=== PATIENT | male | born 1960 | race Caucasian/White ===

== ENCOUNTER 2018-03-31 05:46 | Emergency (ER) | payer OTHER, SELFPAY ==
[2018-03-31 05:54] VITALS: BP 154/94; PULSE 84; RESP 18; TEMP 36.7; O2SAT 97
--- NOTE | 2018-03-31 06:09 | W.ED.GENAD ---
Discharge Plan Disposition Patient Disposition: HOME Condition: Good Discharge Details Chief Complaint: Orthopedic Clinical Impression: Contusion of right wrist Primary Care Provider: Kathy Avila ED Provider: James Rehman Home Meds and New Rx's Prescriptions: No Action No Known Home Meds RF: 0 Discharge Instructions Instructions: Contusion in Adults (ED) Medical Decision Making PAtient states at work yesterday got his right wrist caught between two carts, denies falling or other injuries. HAs full rom of the wirst though with pain along distal ulna, intact sensation and 2+ pulses. Suspect contusion but will obtain xray. HAs no redness/warmth/swelling to suggest septic joint xray negative, suspect contusion, will place in splint and advised f/u with pcp if pain continues in one week Differential Diagnosis sprain, contusion, fracture Imaging Data Radiologic Study: Attestation: I personally reviewed and interpreted this imaging study as follows: Imaging: X-Ray Lab Data no acute findings HPI General Mode of arrival: ambulatory. Date/Time Provider Initiated Documentation: 03/31/18 06:07. Limitations to Documentation: no limitations. Information obtained by: patient. History of Present Illness 57 year old M presents to the emergency department with the chief complaint of right wrist pain, described as moderate, with intensity rated at 4. Quality is described as stabbing, and is localized to the right and upper extremity. Patient extremity. Patient started experiencing this day(s) (1) and it has been constant. Rest improves symptom(s), Movement worsens symptoms . Patient notes no other symptoms.. Patient did receive the following treatments prior to arrival, none Related Data Home Medications Medication Instructions Recorded Confirmed Unknown [No Known Home Meds] 04/20/17 03/31/18 Allergies Allergy/AdvReac Type Severity Reaction Status Date / Time hayfever in summer Allergy Mild congestion, Uncoded 03/31/18 06:02 sneezing General Stated Complaint: Orthopedic TYSHAWN: 3 Review of Systems Review of Systems All systems reviewed & are unremarkable except as noted in HPI and below Constitutional Denies chills, Denies fever(s) and Denies weakness ENT Denies change in voice Cardiovascular Denies chest pain and Denies dyspnea Respiratory Denies dyspnea Gastrointestinal Denies abdominal pain, Denies nausea and Denies vomiting Neurologic Denies weakness Psychiatric Denies depression [facility] Colonoscopy - IV Sedation (10/15/16) Social History Smoking/Tobacco Use Status: Never Surgical History Colonoscopy - IV Sedation (10/15/16) Social History Smoking/Tobacco Use Status: Never Exam Const General: no acute distress Orientation: alert HENMT Head: normal to inspection Ears: external ears normal General nose exam: external nose normal Mouth: moist mucous membranes Eyes General: appearance normal, both eyes and all related structures Neck Neck: normal visual inspection Resp Effort & Inspection: normal respiratory effort and able to speak in complete sentences Cardio Rate: regular rate Skin General skin exam: no rashes or lesions noted Neuro General: alert and oriented x3 Extrem General: normal to inspection Psych Mental Status: mental status grossly normal Course Vital Signs Temperature 36.7 C 03/31/18 05:54 Pulse 84 03/31/18 05:54 Respiratory Rate 18 03/31/18 05:54 Blood Pressure 154/94 H 03/31/18 05:54 Pulse Oximetry 97 03/31/18 05:54 Temperature 36.7 C 03/31/18 05:54 Temperature Source Temporal Artery Scan 03/31/18 05:54 Pulse 84 03/31/18 05:54 Respiratory Rate 18 03/31/18 05:54 Respiratory Effort Non-Labored 03/31/18 05:54 Blood Pressure 154/94 H 03/31/18 05:54 Blood Pressure Position Sitting 03/31/18 05:54 Pulse Oximetry 97 03/31/18 05:54 Oxygen Delivery Method Room Air 03/31/18 05:54 Oxygen Flow Rate 0 03/31/18 05:54 Pain Level 5 03/31/18 05:54
[2018-03-31] MEDS: Acetaminophen 500 MG TAB 1000 MG PO (06:15)
--- NOTE | 2018-03-31 06:20 | DI.RAD_ITS ---
SYMPTOMS/DIAGNOSIS: PAIN S/P TRAUMA RIGHT WRIST: Three views were obtained. Carpal alignment appears within normal limits. No fractures seen.
--- NOTE | 2018-03-31 06:32 | DI.VRAD_ITS ---
EXAM: XR Right Wrist Complete, 3 or more Views EXAM DATE/TIME: 03/31/2018 6:09 AM CLINICAL HISTORY: 57 years old, male; Injury or trauma; Injury history: Caught between two carts; Work related; Initial encounter; Swelling (edema); Wrist; Right; Injury date: 03/30/18; Injury details: PT wrist caught between two carts at work. ; Patient HX: Swelling of the wrist, distal ulna TECHNIQUE: XR Right wrist 3 or more views. COMPARISON: No relevant prior studies available. FINDINGS: Bones/joints: Unremarkable for age. No evidence of acute fracture. Soft tissues: Unremarkable. IMPRESSION: No acute findings. Dictated and Authenticated by: Chad Ndiaye MD. Ordering:NICOLASA MOSER MD
[2018-03-31 06:46] VITALS: BP 154/94; PULSE 84; RESP 18; TEMP 36.7; O2SAT 97
== END 2018-03-31 07:00 | disposition home or self-care (01) ==
LOC: ER 06:52
PROVIDERS: Emergency Provider Emergency Medicine; PCP Family Medicine
DX: S60.211A Contusion of right wrist, initial encounter (principal); W23.0XXA Caught, crushed, jammed, or pinched between moving objects, initial encounter; Y99.0 Civilian activity done for income or pay; I10 Essential (primary) hypertension
CPT/HCPCS: 29125; 99283; 73110; L3908

== ENCOUNTER 2019-12-05 08:39 | Outpatient (REF) | payer OTHER, SELFPAY ==
[2019-12-05 20:10] LABS: HCT 45.9 % (40.0-50.0); HGB 15.8 g/dL (13.5-17.5); MCH 31.3 pg (27.0-33.0); MCHC 34.4 % (32.0-36.0); MCV 91.1 fL (80-95); MPV 11.6 fL (8.0-11.0); Platelet Count 268 10^3/uL (130-400); RBC 5.04 10^6/uL (4.36-5.78); RDW 12.7 % (11.8-14.1); RDW-SD 41.6 fL; WBC 10.34 10^3/uL (4.4-10.8)
[2019-12-05 20:49] LABS: BUN 9 mg/dL (7-18); CREATININE 1.01 mg/dL (0.70-1.30); Calculated LDL 121 mg/dL (<100); Chloride 105 mmol/L (98-107); Cholesterol 183 mg/dL (<200); Glucose 108 mg/dL (74-106); HDL Cholesterol 44 mg/dL (40-60); Potassium 4.4 mmol/L (3.5-5.1); Sodium 141 mmol/L (136-145); Triglyceride 92 mg/dL (<150)
== END 2019-12-05 08:59 ==
LOC: NCHCN 08:39
PROVIDERS: PCP Family Medicine; Visit Provider Family Medicine
DX: Z00.00 Encounter for general adult medical examination without abnormal findings (principal); R73.03 Prediabetes
CPT/HCPCS: 80048; 80061; 85027; 83036

== ENCOUNTER 2020-08-19 11:11 | Emergency (ER) | payer OTHER, SELFPAY ==
[2020-08-19 11:26] VITALS: BP 139/75; PULSE 90; RESP 14; TEMP 36.4; O2SAT 97
--- NOTE | 2020-08-19 11:30 | DI.RAD_ITS ---
EXAM: XR FINGER RT LITTLE CLINICAL HISTORY: laceration tuft, crush injury yesterday TECHNIQUE: COMPARISON: No exams were available for comparison FINDINGS: Three views were obtained. There is no evidence of fracture or dislocation. IMPRESSION: RADIATION DOSE DELIVERED: Total DLP
--- NOTE | 2020-08-19 12:32 | ED.GENADUL_ITS ---
Discharge Plan Disposition Patient Disposition: HOME Condition: Good Discharge Details Clinical Impression: Laceration of finger Primary Care Provider: Kathy Avila ED Provider: Ramona Gonzalez Home Meds and New Rx's Prescriptions: No Action No Known Home Meds RF: 0 Discharge Instructions Instructions: Finger Laceration (ED) Additional Instructions: Keep wound clean and dry Change dressing every 48 hours Keep the bulky dressing on it so that it does not open Return with spreading redness, fever, worsening pain There is no evidence of fracture To develop signs and symptoms of infection listed above, please return to the emergency room Typically we are unable to suture lacerations that are greater than 10 hours after initial injury You have received a tetanus shot Discharge Data Discharge Date/Time-TO BE ENTERED AT DEPARTURE: 08/19/20 12:57 Medical Decision Making Patient appears well, I do not feel comfortable suturing this wound as it has been over 24 hours since injury A bulky dressing was applied X-ray does not show evidence of fracture per radiology interpretation in my revi ew Return precautions were discussed and patient expressed understanding Bleeding is controlled No evidence of secondary infection Differential Diagnosis Differential Diagnosis: Open fracture, fracture, cellulitis, laceration HPI This 60-year-old gentleman who is otherwise healthy presents with injury to right pinky yesterday at 9:00 in the morning. This occurred at work. He states it was crushed between a piece of wood. He is unsure regarding his tetanus. He states that he presents today secondary to intermittent persistent bleeding. He reports some mild discomfort to the affected area. He denies any sensation change. General Date/Time Provider Initiated Documentation: 08/19/20 11:36 . Related Data Home Medications Medication Instructions Recorded Confirmed Unknown [No Known Home Meds] 04/20/17 08/19/20 Allergies Allergy/AdvReac Type Severity Reaction Status Date / Time hayfever in summer Allergy Mild congestion, Uncoded 08/19/20 11:32 sneezing General Stated Complaint: Laceration TYSHAWN: 4 Review of Systems Narrative: Review of systems obtained x7 aside from indicated in HPI [facility] Surgical History (Updated 12/01/16 @ 10:55 by Sinai Gupta) Colonoscopy - IV Sedation (10/15/16) Social History Smoking/Tobacco Use Status: Never Smoking risk assessment performed?: Yes Alcohol Intake: current Alcohol Intake frequency: holidays/special occasions only Drug use: Never Substance use type: does not use Do you feel safe at home: Yes Do you feel safe in your relationship?: Yes Exam Extrem Other: Right fifth digit on hand with laceration noted, mild oozing, mild tenderness, brisk cap refill, sensation intact, no tenderness to metacarpal phalangeal joint, no evidence of secondary cellulitis Course Vital Signs Vital signs: Vital Signs Temperature 36.4 C L 08/19/20 11:26 Pulse 90 08/19/20 11:26 Respiratory Rate 14 08/19/20 11:26 Blood Pressure 139/75 08/19/20 11:26 Pulse Oximetry 97 08/19/20 11:26 Temperature 36.4 C L 08/19/20 11:26 Temperature Source Skin 08/19/20 11:26 Pulse 90 08/19/20 11:26 Respiratory Rate 14 08/19/20 11:26 Respiratory Effort 08/19/20 11:33 Blood Pressure 139/75 08/19/20 11:26 Blood Pressure Position Sitting 08/19/20 11:26 Pulse Oximetry 97 08/19/20 11:26 Oxygen Delivery Method Room Air 08/19/20 11:26 Oxygen Flow Rate 0 08/19/20 11:26 Pain Level 1 08/19/20 11:33
== END 2020-08-19 12:57 | disposition home or self-care (01) ==
PROVIDERS: Emergency Provider Physician Assistant; PCP Family Medicine
DX: S67.196A Crushing injury of right little finger, initial encounter (principal); S61.216A Laceration without foreign body of right little finger without damage to nail, initial encounter; W23.1XXA Caught, crushed, jammed, or pinched between stationary objects, initial encounter; Y99.0 Civilian activity done for income or pay
CPT/HCPCS: 90471; 99284; 73140; 99283

== ENCOUNTER 2020-11-21 09:32 | Outpatient (REF) | payer OTHER, SELFPAY ==
[2020-11-21 14:57] LABS: Hemoglobin A1C 5.9 % (<5.7)
== END 2020-11-21 09:33 | disposition home or self-care (01) ==
LOC: NCHCN 09:32
PROVIDERS: PCP Family Medicine; Visit Provider Family Medicine
DX: R73.03 Prediabetes (principal)
CPT/HCPCS: 83036

== ENCOUNTER 2021-12-02 07:57 | Emergency (ER) | payer OTHER, SELFPAY ==
[2021-12-02 08:01] VITALS: BP 141/91; PULSE 94; RESP 20; TEMP 36.4; O2SAT 99
--- NOTE | 2021-12-02 08:08 | ED.GENADUL_ITS ---
Discharge Plan Disposition Patient Disposition: HOME Condition: Improving Discharge Details Chief Complaint: Laceration Clinical Impression: Laceration of finger Primary Care Provider: Kathy Avila ED Provider: Aidan Foster Home Meds and New Rx's Prescriptions: No Action No Known Home Meds Discharge Instructions Instructions: Finger Laceration (ED) Medical Decision Making 61-year-old gentleman, [id number], presents for a left fingertip laceration versus a sawblade. Patient reports that tetanus status is up-to-date. Recommended x-ray to rule out bony involvement patient believes the laceration is rather superficial and there is no bony involvement, declines x- ray. Given the type of laceration there is nothing to approximate. Patient was like a digital block. Digital block performed using a total of 5 cc half-and-h vikas mixture of 1% lidocaine and 0.5% bupivacaine. Patient tolerated well. Laceration was then thoroughly cleaned and appropriately dressed. Patient tolerated well. Standard discharge and return precautions were provided. Patient understands, is agreeable to this plan, and has no additional questions or concerns upon discharge. This documentation was generated using Stormpulseation system, please disregard any oddities of phrase or misspellings. Medical Records Medical records reviewed: Yes I reviewed the patient's medical records. HPI General Mode of arrival: ambulatory . Date/Time Provider Initiated Documentation: 12/02/21 08:08 . Limitations to Documentation: no limitations . Information obtained by: patient . History of Present Illness 61 year old M presents to the emergency department with the chief complaint of L index finger lac, described as moderate, with intensity rated at 6. Quality is described as aching, and is localized to the left and upper extremity. Patient reports no radiation. Patient started experiencing this minute(s) (30) and it has been constant. Immobilization improves symptom(s), Movement worsens symptoms . Patient notes no other symptoms.. Patient did receive the following treatments prior to arrival, none Related Data Home Medications Medication Instructions Recorded Confirmed Unknown [No Known Home Meds] 04/20/17 12/02/21 Allergies Allergy/AdvReac Type Severity Reaction Status Date / Time hayfever in summer Allergy Mild congestion, Uncoded 12/02/21 08:04 sneezing General Stated Complaint: Laceration TYSHAWN: 4 Review of Systems Constitutional Constitutional: Denies weakness Musculoskeletal Musculoskeletal: Denies arthralgias, Denies numbness, Denies stiffness and Denies tingling Integumentary/Breasts Skin/Breast: Denies erythema Neurologic Neurologic: Denies numbness, Denies tingling and Denies weakness PFSH All Active Problems (Updated 12/02/21 @ 08:26 by GASPER Castrejon) Laceration of finger (Acute) Surgical History Colonoscopy - IV Sedation (10/15/16) Social History Smoking/Tobacco Use Status: Never Smoking risk assessment performed?: Yes Alcohol Intake: current Alcohol Intake frequency: holidays/special occasions only Drug use: Never Substance use type: does not use Do you feel safe at home: Yes Do you feel safe in your relationship?: Yes Exam Const General: cooperative, healthy appearing, comfortable and no acute distress Orientation: alert and awake HENMT Head: normal to inspection, normocephalic and atraumatic Eyes Conjunctivae: conjunctivae normal Neck Neck: normal visual inspection, trachea midline and supple Resp Effort & Inspection: normal respiratory effort and able to speak in complete sentences Cardio Rate: regular rate Rhythm: regular rhythm Skin General skin exam: no rashes or lesions noted Neuro General: patient alert, patient awake, moves all extremities and no focal motor deficits Cognition: normal cognition Speech: speech normal Gait: normal gait Motor: muscle tone normal throughout Sensory Exam: no sensory deficits noted Extrem General: full ROM and capillary refill normal Hand/finger images: 1. There is a linear 2.5 cm avulsion type laceration of the width of a sawblade. This does not involve the joint space nor the nail. Bleeding is controlled. There is no obvious foreign body. Normal capillary refill. Neuro, vascular, tendon intact. Psych Appearance: grossly normal Mental Status: mental status grossly normal Course Vital Signs Vital signs: Vital Signs Temperature 36.4 C L 12/02/21 08:01 Pulse 94 H 12/02/21 08:01 Respiratory Rate 20 12/02/21 08:01 Blood Pressure 141/91 H 12/02/21 08:01 Pulse Oximetry 99 12/02/21 08:01 Temperature 36.4 C L 12/02/21 08:01 Temperature Source Skin 12/02/21 08:01 Pulse 94 H 12/02/21 08:01 Respiratory Rate 20 12/02/21 08:01 Respiratory Effort Non-Labored 12/02/21 08:04 Blood Pressure 141/91 H 12/02/21 08:01 Blood Pressure Position Sitting 12/02/21 08:01 Pulse Oximetry 99 12/02/21 08:01 Oxygen Delivery Method Room Air 12/02/21 08:01 Oxygen Flow Rate 0 12/02/21 08:01 Pain Level 4 12/02/21 08:01
--- OUTSIDE RECORDS SUMMARY | 2021-12-02 08:08 | XMS_ITS | Clinical Summary ---
:1960 Author Organization [facility] Address [address] [place] [address] Care Team Providers Name Role Phone Unknown, Provider Primary Care Provider Social History Tobacco Use Types Packs/Day Years Used Date Never Assessed Sex Assigned at Date Recorded Not on file Plan of Treatment Not on file Care Teams Plumbing Foreman Relationship Specialty Start Date End Date Unknown, Provider, PCP - General 12/13/11
--- OUTSIDE RECORDS SUMMARY | 2021-12-02 08:08 | XMS_ITS | Encounter Summary ---
:1960 Author Organization [facility] Address [address] [place] [address] Care Team Providers Name Role Phone Unknown, Provider Primary Care Provider Encounter Details Date Type Department Care Team Description 06/04/2013 Results Only [facility] Glen Baldwin MD Laboratory Services - [address] [place] [address] [place] [address] [phone] Social History Tobacco Use Types Packs/Day Years Used Date Never Assessed Sex Assigned at Date Recorded Not on file documented as of this encounter Plan of Treatment Not on filedocumented as of this encounter Procedures Procedure Name Priority Date/Time Associated Diagnosis Comme [facility] SURGICAL PATHOLOGY Routine 06/04/2013 16:44 Resul ts for this EST procedure are i n the results section. documented in this encounter Results SURGICAL PATHOLOGY (06/04/2013 16:44 EST) Pathology Report: SURGICAL PATHOLOGY REPORT MAK VILLALPANDO Reports generated via electronic interface contain dolores ginal data; LAB however they are lacking the format of the original re port. Caution should be taken when reading/interpreting unfo rmatted reports. Name: ? JUNIOR TEMPLETON ? Accession #: ? [id number] ? : ? 1960 (Age: 53) ??M ? Collect Date: ? 06/04/2013 ? Location: ? [facility] ? Receive Date: ? 014 ? Provider: KYARA BALDWIN MD Copy to: DIAMOND SNIDER MD ? Final Pathologic Diagnosis: GALLBLADDER, CHOLECYSTECTOMY: - ??Cholelithiasis. Document reviewed and electronically signed by: JACOBO DACOSTA MD Report ??Date: 06/07/2013 12:13 By the signature above, the attending physician certif ies that he/she has personally conducted a gross and/or microscopic examin ation of the described specimens and rendered or confirmed the above diagnosi s. Specimen(s) Received: Gallbladder Clinical History: Biliary colic Gross Description: ? Received in formalin labelled with proper patient identification (initials P, D) and gallbladder is an intact gallbladder (8.4 x 2.7 x 2.4 cm) with an attached segment of cystic duct (1.0 cm in length x 0. 4 cm in diameter). ? The serosa is vega-dowd and predominantly smooth . The mucosa is brown, smooth to focally eroded, an d the wall ranges from 0.1-0.2 cm in thickness. ??The cystic duct lumen is not austen ssly patent. ??The cystic duct margin is inked black. Multiple yellow mulberry ch oleliths are present measuring 0.5 x 0.5 x 0.5 cm in aggregate. ? Two inside technical sales representative se ctions and the inked en face cystic duct margin are submitted in 1. Laura Ortez 06/05/2013 08:58 AM End of Report Specimen Performing Organization Address City/State/ZIP Code Phon e Number [facility] [address] [place] [address] [facility] [address] [place] [address] documented in this encounter Visit Diagnoses Not on filedocumented in this encounter Care Teams Diesel Engineer Relationship Specialty Start Date End Date Unknown, Provider, PCP - General 12/13/11 documented as of this encounter
--- OUTSIDE RECORDS SUMMARY | 2021-12-02 08:08 | XMS_ITS | Encounter Summary ---
:1960 Author Organization [facility] Address [address] [place] [address] Care Team Providers Name Role Phone Unknown, Provider Primary Care Provider Encounter Details Date Type Department Care Team Description 06/04/2013 Hospital Encounter [facility]- Michelle Unknown, Provider, [facility] [address] [facility] [phone] [place] [address] (Work) [phone] Social History Tobacco Use Types Packs/Day Years Used Date Never Assessed Sex Assigned at Date Recorded Not on file documented as of this encounter Discharge Disposition Disposition Code Departure Means Destination Home or Self [facility] documented in this encounter Plan of Treatment Not on filedocumented as of this encounter Visit Diagnoses Not on filedocumented in this encounter Care Teams Bilingual Student Tutor Relationship Specialty Start Date End Date Unknown, Provider, PCP - General 12/13/11 documented as of this encounter
--- OUTSIDE RECORDS SUMMARY | 2021-12-02 08:08 | XMS_ITS | Encounter Summary ---
:1960 Author Organization [facility] Address [address] [place] [address] Care Team Providers Name Role Phone Unknown, Provider Primary Care Provider Encounter Details Date Type Department Care Team Description 12/13/2011 Results Only [facility] Satinder Campos MD Laboratory Services - [address] [place] [address] [place] [address] [place] [address] [phone] Social History Tobacco Use Types Packs/Day Years Used Date Never Assessed Sex Assigned at Date Recorded Not on file documented as of this encounter Plan of Treatment Not on filedocumented as of this encounter Procedures Procedure Name Priority Date/Time Associated Diagnosis Comme nts SURGICAL PATHOLOGY Routine 12/13/2011 0:00 EDT Re sults for this procedure are i n the results section. documented in this encounter Results SURGICAL PATHOLOGY (12/13/2011 0:00 EDT) Pathology Report: SURGICAL PATHOLOGY REPORT MAK VILLALPANDO Reports generated via electronic interface contain dolores ginal data; LAB however they are lacking the format of the original re port. Caution should be taken when reading/interpreting unfo rmatted reports. Name: ? JUNIOR TEMPLETON ? Accession #: ? [id number] ? : ? 1960 (Age: 51) ??M ? Collect Date: ? 12/13/2011 ? Location: ? [facility] ? Receive Date: ? 012 ? Provider: SATINDER CAMPOS MD Copy to: ? Final Pathologic Diagnosis: ? Rectum, polyp, biopsy: - Hyperplastic polyp. ?? Document reviewed and electronically signed by: LEROY RAMIREZ [facility] Report ??Date: 12/15/2011 11:42 By the signature above, the attending physician certif ies that he/she has personally conducted a gross and/or microscopic examin ation of the described specimens and rendered or confirmed the above diagnosi s. Specimen(s) Received: ? Rectal polyp Clinical History: ? Rectal bleeding; FH colon cancer Gross Description: ? Received in formalin labelled Junior Templeton and #1 rectal polyp is a 0.4 x 0.3 x 0.2 cm sessile p olyp which has a 0.2 x 0.1 cm resection margin. ??The resection margin is black in ked. ??The bisected specimen is submitted entirely in one cassette. ??(Naomy Chavarria/kendal End of Report Specimen Performing Organization Address City/State/ZIP Code Phon e Number [facility] [address] [place] [address] [facility] [address] [place] [address] documented in this encounter Visit Diagnoses Not on filedocumented in this encounter Care Teams Master Automotive Technician Relationship Specialty Start Date End Date Unknown, Provider, PCP - General 12/13/11 documented as of this encounter
[2021-12-02] MEDS: Bupivacaine 0.5% Pres-Free 30 ML VIAL (08:16)
== END 2021-12-02 08:34 | disposition home or self-care (01) ==
PROVIDERS: Emergency Provider Physician Assistant; PCP Family Medicine
DX: S61.211A Laceration without foreign body of left index finger without damage to nail, initial encounter (principal); W27.0XXA Contact with workbench tool, initial encounter
CPT/HCPCS: 64450; 99282

== ENCOUNTER 2021-12-15 18:21 | Outpatient (REF) | payer OTHER, SELFPAY ==
[2021-12-15 16:41] LABS: Hemoglobin A1C 5.9 % (<5.7)
== END 2021-12-15 18:22 | disposition home or self-care (01) ==
LOC: NCHCN 18:21
PROVIDERS: PCP Family Medicine; Visit Provider Family Medicine
DX: R73.03 Prediabetes (principal)
CPT/HCPCS: 83036

== ENCOUNTER 2022-10-22 10:56 | Day surgery (SDC) | payer OTHER, SELFPAY ==
--- NOTE | 2022-10-21 20:58 | W.COLOREPORT ---
Date of service: 10/22/22 Time of Service: 01:30 Colonoscopy Report Date of procedure: 10/22/22 Pre-op diagnosis general: Mother had CRC cancer Surgeon: Jacqueline Norton Anesthesia Type: General:No Airway Estimated blood loss (mL): 1 Pathology: other (Polyp) Complications: None Disposition: same day Prep: Miralax/Dulcolax Retraction Time: 25 Procedure Description: After informed consent was obtained the patient was taken to the procedure room and placed in a left decubitous position. Monitors were applied and a time out was done. The patients name, date of , procedure, allergies to medications and metal in their body was reviewed. The patient was then sedated. Once sedated and comfortable a rectal exam was done. External exam was normal, few small external hemorrhoidal tags. the prep was good BBPS 1 in the right colon and a BBPS 2 in the transverse and left colon for a total of 5. Internal exam revealed a normal sphincter tone and no palpable masses. The prostate nl, The scope was then introduced and retrofelexed. No internal hemorrhoid tags were identified. The scope was then advanced to the cecum w/out difficulty. The TI and appendiceal orifice were identified. The colon was irrigated with 2 L of fluid. Lesions less than 5 mm would have been missed the prep was BBPS5.. The scope was then slowly retracted over 25 minutes back into the rectum. Polyps were removed at: 5 mm flat polyp x2 at 20 cm that are removed with a cold biting forcep. All specimen is retrieved and no bleeding is noted. There are no diverticula visualized today. The scope was removed and the patient was woken up and taken back to Same day surgery in stable condition. The patient tolerated the procedure well and there were no immediate complications. Follow up: The patient should follow up in 5 years unless they develop changes in bowel habits or other new gastrointestinal complaints.
--- NOTE | 2022-10-21 20:59 | PDOC.DSDIS_ITS ---
Date of service: 10/22/22 Time of Service: 12:28 Discharge Plan Disposition Patient Disposition: Home Condition: Good Discharge Details Reason For Visit: colon scope Attending Provider: Jacqueline Norton Primary Care Provider: Kathy Avila Home Meds and New Rx's Prescriptions: Continued albuterol sulfate [Proventil HFA] 90 mcg/actuation HFA aerosol inhaler 2 puff inhalation Q6H PRN sildenafil [Viagra] 50 mg tablet 50 mg PO DAILY PRN Rx Instructions: administer 30 minutes to 4 hours before activity montelukast [Singulair] 10 mg tablet 10 mg PO DAILY Discontinued bisacodyl [Dulcolax (bisacodyl)] 5 mg tablet,delayed release (DR/EC) 5 mg PO ONCE Qty: 4 0RF Rx Instructions: Take per colonoscopy instructions provided by ordering providers office polyethylene glycol 3350 17 gram/dose powder 17 g PO ONCE Qty: 238 0RF Rx Instructions: Take per colonoscopy instructions provided by ordering providers office Discharge Instructions Additional Instructions: DSU Colonoscopy Post- Op Instructions Instructions for Everyone who is given Anesthesia: For your safety, please do the following for the next twenty-four (24) hours: *Do Not operate a motor vehicle (car, truck, motorcycle, etc.) *Do Not drink alcoholic beverages or use any recreational drugs for the first 24 hours or while taking pain medications. The medications in your body may have a reaction that can be dangerous. *Do Not make any important decisions or sign any important papers. Findings: 2 all polyps were removed today my office will send a letter in 2 to 3 weeks time with the pathology results. Follow up: Repeat colonoscopy in 5 years time 1. No lifting over 20 pounds or strenuous activity for the first 24 hours after your procedure. After 24 hours there are no restrictions on your activity but you may feel fatigued for a few days. 2. After you arrive home you may have a light meal and return to your normal diet as you can tolerate it without feeling sick to your stomach. 3. You may have a bloated, gaseous feeling in your belly (abdomen) after a colonoscopy. Passing gas and belching will help. Walking or lying down on your left side with your knees flexed may relieve the discomfort. Call the office at [phone] (Office) or [phone] (Hospital) right away if you notice any of the following: a.Vomiting of blood or ?coffee ground stools?. b.Rectal bleeding 1Tbsp, blood clots or continuous bleeding. c.Severe belly (abdominal) pain. d.A hard distended belly (abdomen) and an inability to pass gas. 4. Please don?t expect to have a normal BM (bowel movement) for 2-3 days after your procedure. 5. If there are questions regarding the findings of your procedure, please contact your doctor 6. If you are unable to contact your doctor with a problem, contact the hospital at [phone]. 7. Continue all your regular medications unless directed otherwise. I understand the above instructions and have no questions. Signature of Patient or Adult Escort Name of Responsible Adult Escort Signature of Nurse Date/Time Activity:: see above Diet:: see above Discharge Orders Discharge Orders: Discharge Order (Routine); Ordered 10/22/22 Ordered By: Jacqueline Norton DS: Diagnosis Discharge Diagnosis (1) Family history of colon cancer: Status: Acute Asessment and Plan: The patient is seen and examined after their colonoscopy.? The patient has been able to pass gas.? They are not having abdominal pain.? They have been able to tolerate liquids and a snack.? They do not have any nausea or vomiting.? They are not having any chest pain or shortness of breath.??? They are not having any rectal bleeding. Their vital signs have been stable-see nursing notes. We discussed findings during their colonoscopy, and any biopsies that were done/polyps that were removed. The patient will be sent a letter with any biopsy results, and when to repeat the colonoscopy.-see discharge instructions. Patient was given explicit instructions to follow-up regarding colonoscopy-refer to discharge instructions.? We reviewed resumption of medications. Patient verbalized understanding and discharged in stable and satisfactory condition- See nursing notes. (2) Prediabetes: Status: Acute (3) Asthma: Status: Chronic (4) Hemorrhoids: Status: Acute (5) Allergic rhinitis: Status: Acute (6) Adenomatous colon polyp: Status: Acute
[2022-10-22 11:12] VITALS: BP 138/97; PULSE 80; RESP 18; TEMP 36.5; O2SAT 98
[2022-10-22] MEDS: Lactated Ringers 1,000 ML 80 ML IV (11:25)
--- NOTE | 2022-10-22 11:25 | W.ANESPRE ---
General Info Date of Service Date Performed: 10/22/22 Height: 5 ft 11 in Weight: 92.9 kg Body Mass Index (BMI): 28.5 Surgical Procedure: Operation Date: 10/22/22 11:20 Proposed Procedure Side Surgeon sherin Norton, DO Meds Allergies and Home Medications Allergies Allergy/AdvReac Type Severity Reaction Status Date / Time hayfever in summer Allergy Mild congestion, Uncoded 10/22/22 11:10 sneezing Home Medication Medication Instructions Recorded albuterol sulfate 90 mcg/actuation 2 puff inhalation Q6H PRN 03/11/22 aerosol inhaler (Proventil HFA) montelukast 10 mg tablet 10 mg PO DAILY 03/11/22 (Singulair) sildenafil 50 mg tablet (Viagra) 50 mg PO DAILY PRN 03/11/22 Current Visit Medications: Current Medications Generic Name Dose Route Start Last Admin Trade Name Freq PRN Reason Stop Dose Admin Hyoscyamine Sulfate 0.125 mg 10/22/22 08:57 Hyoscyamine 0.125 Mg Sl/Oral/Chew SL 11/21/22 08:56 DIRECTED PRN Ringer's Solution 1,000 mls @ 80 mls/hr 10/22/22 06:00 IV 10/22/22 23:59 INFUSION [facility] IV Miscellaneous Supplies 1 each 10/22/22 06:00 Iv Access IV 10/22/22 23:59 DIRECTED LAY Ondansetron HCl 4 mg 10/22/22 08:57 Ondansetron 4 Mg/2 Ml Vial IVP 11/21/22 08:56 Q4H PRN PRN Nausea / Vomiting Sodium Chloride 0 ml 10/22/22 06:00 Normal Saline Flush 10 Ml Syr IV 10/22/22 23:59 PRN PRN Sodium Chloride 0 ml 10/22/22 06:00 Normal Saline 10 Ml Vial IJ 10/22/22 23:59 DIRECTED PRN Sterile Water 0 ml 10/22/22 06:00 Water,Injection,Sterile 10 Ml Vial IJ 10/22/22 23:59 DIRECTED PRN PFSH Active Problems Active Problems: Problem Status Onset Code Laceration of finger S61.219A Family history of colon cancer Z80.0 Screening for colon cancer Z12.11 Prediabetes R73.03 Asthma J45.909 Erectile dysfunction N52.9 Hemorrhoids K64.9 Allergic rhinitis J30.9 Medical History Medical History Sebaceous cyst Surgical History Surgical History Colonoscopy - IV Sedation (10/15/16) History of cholecystectomy Tobacco Smoking/Tobacco Use Status: Never Alcohol Alcohol Intake: current Alcohol intake frequency: a few times a week Alcohol type: beer Substance Use Substance use: Never Substance use type: does not use Vital Signs and Lab Results Vital Signs Most Recent Vital Signs in EMR: Most Recent Vital Signs Temp Pulse Resp BP Pulse Ox 36.5 C 80 18 138/97 H 98 10/22/22 11:12 10/22/22 11:12 10/22/22 11:12 10/22/22 11:12 10/22/22 11:12 Lab Results Blood Type / Crossmatch: No Data to Display Complete Blood Count: No Data to Display Complete Metabolic Panel: No Data to Display Liver Function Panel: No Data to Display Coagulation Panel: No Data to Display Cardiac Panel: No Data to Display Arterial Blood Gas: No Data to Display Venous Blood Gas: No Data to Display Pancreas Panel: No Data to Display Thyroid Panel: No Data to Display Infectious Disease: No Data to Display Blood Cultures: No Data to Display Toxicology Panel: No Data to Display Anesthesia Assessment and Plan Anesthesia History Personal History: No History of Anesthesia Complications Family History: No Family History of Anesthesia Complications Exercise Tolerance Exercise Tolerance: Metabolic Equivalents>4 Pertinent Negatives Pertinent Negatives: No Symptoms of GERD, No Major Cardiovascular Symptoms or Complaints, No Major Pulmonary Symptoms or Complaints and No History of CVA/TIA Cardiac & Pulmonary Exam Cardiac Exam: Normal S1/S2 Heart Sounds Pulmonary Exam: Clear Bilateral Breath Sounds Implantable Cardiac Device Does patient have a Pacemaker or an ICD?: No Airway Exam Known Difficult Airway: No Mallampati Class: 2 Mouth Opening: Normal (> 3cm) Thyromental Distance: Greater than 3 cm Neck Range of Motion: Full ROM Neck Circumference: Normal Teeth Condition: Normal Dentition ASA Classification ASA Score: ASA 2 Emergency Case?: No NPO Status NPO Status: NPO Clears >2 hours, Solids >8 hours Anesthesia Plan Resuscitation Status: Full Code Anesthesia Technique: General Anesthesia Airway Planned: Natural Airway Monitors Used: Standard Monitors
[2022-10-22 11:26] VITALS: BMI 28.5
--- NOTE | 2022-10-22 11:40 | BOWEL_PTH ---
PATIENT: Jay Templeton LOC: [facility] U#:[id number] AGE/SX: 62/M ROOM: RE10/22/[address]: Jacqueline Norton : 1960 BED: DIS: 10/22/2022 SPEC #: [id number] RECD: 10/22/22 12:47 STATUS: DENISE REQ #: [id number] JORGE: 10/22/22 11:[address]: Jacqueline Norton DEPT: Surgical Specimen RECD BY: Ramona Dawkins ENTERED: 10/22/22 12:47 SP TYPE: Bowel OTHR DR: Kathy Avila Tissues: 1 - BIOPSY BOWEL Procedures: GROSS AND MICRO LEVEL 4 Comments: [id number]
[2022-10-22 12:17] VITALS: BP 107/87; PULSE 66; RESP 16; TEMP 36.1; O2SAT 98
--- NOTE | 2022-10-22 12:22 | W.ANESPOSTOP ---
Postoperative Evaluation Date, Time and Location Date Performed: 10/22/22 Time Performed: 12:22 Patient Location: Day Surgery Unit Vital Signs Most Recent Imported Vital Signs: Most Recent Vital Signs Temp Pulse Resp BP Pulse Ox 36.1 C L 66 16 107/87 98 10/22/22 12:17 10/22/22 12:17 10/22/22 12:17 10/22/22 12:17 10/22/22 12:17 Pain Score Most Recent Pain Score: Most Recent Pain Score Pain Level 0 10/22/22 11:12 Assessment Mental Status: Arousable with meaningful communication Airway and Respiratory Function: Patent airway with normal (patient baseline) respiratory exam Cardiovascular Function: Hemodynamically Stable Hydration Status: Adequately Hydrated Nausea & Vomiting: No Nausea or Vomiting Pain: Pt. Denies Any Pain Peripheral Nerve Block: Patient did not receive a nerve block
[2022-10-22 12:45] VITALS: BP 127/93; PULSE 72; RESP 16; TEMP 36.2; O2SAT 97
== END 2022-10-22 13:00 | disposition home or self-care (01) ==
PROVIDERS: PCP Family Medicine; Visit Provider Surgery
PROC: 0DJD8ZZ Inspection of Lower Intestinal Tract, Via Natural or Artificial Opening Endoscopic (ICD-10-PCS; CPT 45378; principal; 2022-10-22 11:15)
DX: Z12.11 Encounter for screening for malignant neoplasm of colon (principal); Z80.0 Family history of malignant neoplasm of digestive organs; K63.5 Polyp of colon; R73.03 Prediabetes
CPT/HCPCS: 45380; 88305; J2001

== ENCOUNTER 2022-11-05 15:38 | Outpatient (CLI) | payer OTHER, SELFPAY ==
--- NOTE | 2022-11-05 15:15 | DI.RAD_ITS ---
Exam(s) XR KNEE RT 3V AP,LAT,JOSE EXAM: XR KNEE RT 3V AP,LAT,JOSE CLINICAL HISTORY: Rt knee pain, M25.561, evaluate pathology. TECHNIQUE: 2D digital imaging was performed. Three views. COMPARISON: No exams were available for comparison FINDINGS: BONES: No acute fracture is present. No bony destructive lesion is seen. JOINTS: Minimal medial femoral tibial joint space narrowing. Minimal periarticular spurring. No timo nt effusion is seen. SOFT TISSUE: Normal. IMPRESSION: Minimal degenerative changes. DATA REPOSITORY: RADIATION DOSE DELIVERED:
== END 2022-11-05 15:58 ==
PROVIDERS: PCP Family Medicine; Visit Provider Nurse Practitioner Family
DX: M17.11 Unilateral primary osteoarthritis, right knee (principal)
CPT/HCPCS: 73562

== ENCOUNTER → 2023-01-24 01:22 | Outpatient (CLI) | payer OTHER, SELFPAY ==
--- NOTE | 2023-01-24 | DI.MRI_ITS ---
Exam(s) MR LOWER JOINT RT WO EXAM: MR LOWER JOINT RT WO CLINICAL HISTORY: RT KNEE PAIN, M25.561 TECHNIQUE: Multiplanar multisequence MRI of the knee was performed. COMPARISON: CR XR KNEE RT 3V AP,LAT,JOSE from 11/05/2022 FINDINGS: EFFUSION: There is a moderate size knee joint effusion. There is a Desai's cyst in the medial poplit eal fossa which measures 4.2 cm cephalocaudal by 1.0 cm AP x 1.0 cm wide. MARROW:There is mild intraosseous edema in the outer aspect of the medial femoral condyle. No signal abnormality in the lateral femoral condyle nor in the tibial plateau nor in the fibular head and nec k. PATELLOFEMORAL COMPARTMENT: The quadriceps tendon is intact. The patellar ligament is intact. There is no significant thinning of the retropatellar cartilage. No evidence of fissure nor signific ant chondral defect. No osteochondral defect at this level.There is no intraosseous signal to sugges t recent patellar dislocation. There are no patellar retinacular tears. CRUCIATE LIGAMENTS: The anterior cruciate ligament is intact.The posterior cruciate ligament is intac t. MEDIAL COMPARTMENT/MEDIAL MENISCUS: There is a tear in the posterior horn of the medial meniscus with both vertical and oblique components. The meniscal root appears intact. There is some meniscocapsu lar separation with increased signal between the outer aspect of the posterior horn and the MCL. Mil d meniscal extrusion noted. The anterior horn of the medial meniscus appears intact. There is minim al cartilage loss over the weight-bearing surface of the medial femoral condyle. There are no osteop hytes in the medial compartment.No osteochondral defects.. MEDIAL COLLATERAL LIGAMENT: Abnormal signal at junction of its inner fibers and the posterior horn me dial meniscus consistent with element of meniscocapsular separation. There is no high-grade tear of the MCL itself. LATERAL COMPARTMENT/LATERAL MENISCUS: There is no evidence of lateral meniscal tear.There are no sergio dral defects, osteochondral defects, subarticular marrow edema, nor osteophytes evident. ILIOTIBIAL BAND: Intact LATERAL COLLATERAL LIGAMENT COMPLEX: The fibular collateral ligament is intact. The biceps femoris t endon is intact.Popliteus muscle and tendon are intact. IMPRESSION: 1. There is a somewhat complex tear of the posterior horn of the medial meniscus. No flipped fragmen ts but there is mild meniscocapsular separation evident the anterior horn of the medial meniscus appe ars unremarkable. There are minimal cartilage findings in the medial compartment. There is some int raosseous signal abnormality in the outer 3rd of the medial femoral condyle which may be related to t he MCL findings. Nevertheless, there does not appear to be a high-grade MCL tear. 2. No significant findings in the lateral compartment and no significant findings in the patellofemor al compartment. 3. Moderate size joint effusion noted and Desai's cyst with measurements as above. 4. DATA REPOSITORY:
== END ==
PROVIDERS: PCP Family Medicine; Visit Provider Family Medicine
DX: S83.231A Complex tear of medial meniscus, current injury, right knee, initial encounter (principal); X58.XXXA Exposure to other specified factors, initial encounter
CPT/HCPCS: 73721

== ENCOUNTER 2023-03-01 16:18 | Outpatient (REF) | payer OTHER, SELFPAY ==
[2023-03-01 20:16] LABS: ALT 45 U/L (16-63); AST 20 U/L (15-37); Albumin 3.8 g/dL (3.4-5.0); Alkaline Phosphatase 90 U/L (46-116); BUN 9 mg/dL (7-18); Bilirubin, Total 1.1 mg/dL (0.2-1.0); CREATININE 1.1 mg/dL (0.70-1.30); Calcium 8.8 mg/dL (8.5-10.1); Chloride 103 mmol/L (98-107); Estimated GFR 76.85 (mL/min/1.73m2); Glucose 206 mg/dL (74-106); Potassium 3.8 mmol/L (3.5-5.1); Sodium 139 mmol/L (136-145); Total Protein 6.9 g/dL (6.4-8.2)
[2023-03-01 20:19] LABS: Hemoglobin A1C 6.9 % (<5.7)
[2023-03-03 10:12] LABS: HIV-1/2 Ag & Ab Screen Negative (Negative)
== END 2023-03-01 16:19 | disposition home or self-care (01) ==
LOC: NCHCN 16:18
PROVIDERS: PCP Family Medicine; Visit Provider Family Medicine
DX: R73.03 Prediabetes (principal); E66.9 Obesity, unspecified
CPT/HCPCS: 80053; 87389; 83036

== ENCOUNTER 2023-06-09 15:14 | Outpatient (REF) | payer OTHER, SELFPAY ==
[2023-06-09 16:23] LABS: Hemoglobin A1C 7.1 % (<5.7)
== END 2023-06-09 15:15 | disposition home or self-care (01) ==
LOC: NCHCN 15:14
PROVIDERS: PCP Family Medicine; Visit Provider Family Medicine
DX: R73.03 Prediabetes (principal)
CPT/HCPCS: 83036

== ENCOUNTER 2023-06-17 15:31 | Outpatient (REF) | payer OTHER, SELFPAY ==
[2023-06-17 20:20] LABS: Microalb ug/mg Crea 6.6 ug/mg Cr
== END 2023-06-17 15:32 | disposition home or self-care (01) ==
LOC: NCHCN 15:31
PROVIDERS: PCP Family Medicine; Visit Provider Family Medicine
DX: E11.9 Type 2 diabetes mellitus without complications (principal)
CPT/HCPCS: 82043; 82570

== ENCOUNTER 2023-10-03 08:37 | Outpatient (REF) | payer OTHER, SELFPAY ==
[2023-10-03 15:54] LABS: Hemoglobin A1C 6.4 % (<5.7)
[2023-10-03 16:13] LABS: ALT 36 U/L (16-63); Calculated LDL 105 mg/dL (<100); Cholesterol 176 mg/dL (<200); HDL Cholesterol 51 mg/dL (40-60); Triglyceride 100 mg/dL (<150)
== END 2023-10-03 08:38 | disposition home or self-care (01) ==
LOC: NCHCN 08:37
PROVIDERS: PCP Family Medicine; Visit Provider Family Medicine
DX: E11.9 Type 2 diabetes mellitus without complications (principal)
CPT/HCPCS: 80061; 83036; 84460

== ENCOUNTER 2024-04-06 15:12 | Outpatient (REF) | payer OTHER, SELFPAY ==
[2024-04-06 16:05] LABS: ALT 29 U/L (16-63); Calculated LDL 50 mg/dL (<100); Cholesterol 131 mg/dL (<200); HDL Cholesterol 49 mg/dL (40-60); Triglyceride 163 mg/dL (<150)
== END 2024-04-06 15:13 | disposition home or self-care (01) ==
LOC: NCHCN 15:12
PROVIDERS: PCP Family Medicine; Visit Provider Family Medicine
DX: E78.5 Hyperlipidemia, unspecified (principal)
CPT/HCPCS: 80061; 84460

== ENCOUNTER 2024-10-08 18:23 | Outpatient (REF) | payer OTHER, SELFPAY ==
[2024-10-08 22:32] LABS: Microalb ug/mg Crea 4.5 ug/mg Cr
== END 2024-10-08 18:24 | disposition home or self-care (01) ==
LOC: NCHCN 18:23
PROVIDERS: PCP Family Medicine; Visit Provider Family Medicine
DX: E11.9 Type 2 diabetes mellitus without complications (principal)
CPT/HCPCS: 82043; 82570

== ENCOUNTER 2025-04-08 16:18 | Outpatient (REF) | payer OTHER, SELFPAY ==
[2025-04-08 21:50] LABS: HCT 46.9 % (40.0-50.0); HGB 15.5 g/dL (13.5-17.5); MCH 30.4 pg (27.0-33.0); MCHC 33.0 % (32.0-36.0); MCV 92 fL (80-95); MPV 11.7 fL (8.0-11.0); Platelet Count 250 10^3/uL (130-400); RBC 5.10 10^6/uL (4.36-5.78); RDW 12.7 % (11.8-14.1); RDW-SD 43.5 fL; WBC 7.15 10^3/uL (4.4-10.8)
[2025-04-08 22:15] LABS: ALT 30 U/L (10-49); AST 23 U/L (<34); Albumin 4.3 g/dL (3.2-5.0); Alkaline Phosphatase 77 U/L (46-116); Anion Gap 7.5 mmol/L (3-11); BUN 9 mg/dL (9-23); Bilirubin, Total 1.90 mg/dL (0.2-1.2); CO2 29.5 mmol/L (20.0-31.0); Calcium 9.0 mg/dL (8.3-10.6); Chloride 104 mmol/L (98-107); Glucose 91 mg/dL (74-106); Potassium 4.2 mmol/L (3.5-5.1); Sodium 141 mmol/L (136-145); Total Protein 6.8 g/dL (5.7-8.2)
[2025-04-08 22:16] LABS: TSH (W/Ref FT4) 1.62 uIU/mL (0.55-4.78)
[2025-04-09 18:53] LABS: PSA, Diagnostic 0.7 ng/mL (<=4.5)
== END 2025-04-08 16:19 | disposition home or self-care (01) ==
LOC: NCHCN 16:18
PROVIDERS: PCP Family Medicine; Visit Provider Family Medicine
DX: R63.4 Abnormal weight loss (principal)
CPT/HCPCS: 80053; 85027; 84153; 84443